=== PATIENT | male | born 1935 | race Caucasian/White ===

== ENCOUNTER 2016-09-23 16:32 | Emergency (ER) | payer MEDICARE, OTHER ==
[2016-09-23] MEDS ORDERED: BACIGUENT PACKET TP ONE (16:47)
[2016-09-23] MEDS ORDERED: Adacel Vial IM ONE ×2 (16:47→16:54)
[2016-09-23] MEDS ORDERED: BACIGUENT PACKET ONE (16:51)
--- NOTE | 2016-09-23 16:52 | ERPHSYRPT ---
- History of Present Illness Time Seen by Provider: 09/23/16 16:41 Source: patient Patient Subjective Stated Complaint: PT STATES THAT HE HAD A MOLE TRAP PIECE HIT HIM ON THE. HAND STATES HE JUST NEEDS A TETNUS SHOT. STATES HE. CLEANED THE WOUND WITH PEROXIDE AND APPLIED. TRIPLE ANTIBIOTIC OINTEMENT. Triage Nursing Assessment: PT ALERT WARM AND DRY RESP EASY NON LABORED PT HAS. PUNCTURE WOUND NOTED TO LEFT HAND BETWEEN THUMB AND. INDEX FINGER BLEEDING CONTROLLED. Physician History: CC: left hand injury Hx: 81 y/o patient of Dr Jeong injured left hand this AM with a mole trap. It poked him with a puncture at left prox thumb. He was worried about tetanus vaccine which has not been updated for over 5 years so came to ER. No other complaints. No N/T/W. Symptoms mild. Occurred: this morning Severity of Pain-Max: mild Severity of Pain-Current: mild Extremities Pain Location: hand: left Allergies/Adverse Reactions: No Known Drug Allergies Allergy (Verified 12/30/14 16:28) Home Medications: Aspirin 1 tab PO DAILY 04/16/15 [History] Losartan/Hydrochlorothiazide [Losartan-Hctz 50-12.5 mg Tab] 1 tab PO HS [History] Magnesium Oxide 400 mg [Mag-Ox 400] 400 mg PO BID 04/16/15 [History] Potassium Chloride 10 Meq Tab* [Klor Con 10 MEQ] 2 tab PO BID 04/16/15 [ History] Pravastatin Sodium 20 mg PO HS 04/16/15 [History] Tamsulosin HCl [Flomax] 1 tab PO HS 04/16/15 [History] Ticagrelor [Brilinta] 90 mg PO BID 04/16/15 [History] Hx Tetanus, Diphtheria Vaccination/Date Given: No (UNKNOWN) Hx Influenza Vaccination/Date Given: Yes Hx Pneumococcal Vaccination/Date Given: No Immunizations Up to Date: Yes - Review of Systems Constitutional: No Symptoms, No Fever Musculoskeletal: Injury (left hand), No Neck Pain Neurological: No Focal Weakness, No Parasthesia - Past Medical History Pertinent Past Medical History: No Neurological History: No Pertinent History ENT History: No Pertinent History Cardiac History: Myocardial Infarction (VT), Other Respiratory History: No Pertinent History, Pneumonia Endocrine Medical History: No Pertinent History Musculoskeletal History: No Pertinent History GI Medical History: No Pertinent History, Hernia History: No Pertinent History Psycho-Social History: No Pertinent History Male Reproductive Disorders: No Pertinent History Other Medical History: PROSTATE CANCER - seed implant. 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 - Past Surgical History Past Surgical History: Yes Neuro Surgical History: No Pertinent History Cardiac: Cardiac Catheterization, Cardiac Stent Respiratory: No Pertinent History Gastrointestinal: Hernia Repair Genitourinary: No Pertinent History Musculoskeletal: No Pertinent History Male Surgical History: Prostate Surgery Other Surgical History: PROSTATE SEED IMPLANT - Social History Smoking Status: Never smoker Exposure to second hand smoke: No Drug Use: none Patient Lives Alone: No - Nursing Vital Signs Nursing Vital Signs: Initial Vital Signs Temperature 98.0 F Temperature Source Oral Pulse Rate 59 Respiratory Rate 18 Blood Pressure [Left Arm] 162/80 - Physical Exam General Appearance: alert, other (pleasant man) Eyes, Ears, Nose, Throat Exam: moist mucous membranes Cardiovascular/Respiratory Exam: regular rate/rhythm Neuro/Tendon Exam: normal sensation, normal motor functions Mental Status Exam: alert, oriented x 3, cooperative Skin Exam: warm, dry SpO2: 96 Oxygen Delivery: Room Air Comments: He has some white salve on wound. Will cleanse. He has puncture between prox left thumb and index. No tenderness. Normal ROM. No apparent bony injury. Intact sensation. - Course Nursing assessment & vital signs reviewed: Yes Ordered Tests: Active Orders 24 hr Category Date Time Status Wound Care STAT Care 09/23/16 16:47 Active - Progress Progress Note: 09/23/16 16:50 He declines xray. Advised wound care. Adacel will be updated. Counseled pt/family regarding: diagnosis, need for follow-up - Departure Time of Disposition: 16:50 Departure Disposition: Home Clinical Impression: Puncture wound of left hand Qualifiers: Encounter type: initial encounter Foreign body presence: unspecified Qualified Code(s): S61.432A - Puncture wound without foreign body of left hand, initial encounter Condition: Stable Critical Care Time: No Referrals: CURLY JEONG MD [Primary Care Provider] - Instructions: Puncture Wound Additional Instructions: LACERATION CARE 1. Do not use peroxide, merthiolate, alcohol, or betadine. 2. Keep wound clean and dry. 3. Change dressing if it becomes wet or soiled. 4. If you must work, wear protective covering. 5. You may return to the emergency department or see your family physician for suture removal. 6. See your family physician or return to the emergency department for any of the following signs or symptoms: A. Redness B. Swelling C. Discolored drainage D. Red streaks E. Elevated temperature F. Other signs of infection Rx bacitracin. Report any sign of infection right away. Prescriptions: Bacitracin 15 gm TP DAILY #1 oint...g.
[2016-09-23 17:05] VITALS: BP 146/76; PULSE 64; O2SAT 97
== END 2016-09-23 17:06 | disposition home or self-care (01) ==
LOC: ED 16:32
DX: S61.432A Puncture wound without foreign body of left hand, initial encounter (principal); W22.8XXA Striking against or struck by other objects, initial encounter
CPT/HCPCS: 90471; 90715; 99283; 99284; A9270-GY

== ENCOUNTER 2018-04-28 11:54 | Emergency (ER) | payer MEDICARE, OTHER ==
[2018-04-28] MEDS ORDERED: Sodium Chloride 0.9% 1000 ML 1,000 ML IV STA (12:43)
--- NOTE | 2018-04-28 12:43 | ERPHSYRPT ---
- History of Present Illness Time Seen by Provider: 04/28/18 12:39 Source: patient, family Exam Limitations: no limitations Patient Subjective Stated Complaint: PT STATES HE WAS SITTING IN [employer] AND STARTED TO NOT FEEL WELL, WENT TO BATHROOM, FELT DIZZY AND FELL INTO WALL. STATES SOMEONE HELPED KEEP HIM UPRIGHT AND DID NOT FALL TO FLOOR. DENIES DIZZINESS AT THIS TIME. Triage Nursing Assessment: PALE/WARM/DRY, RESP EASY, A&OX4, PT WHEELED TO ROOM BUT STOOD AND TRANSFERRED TO BED PER SELF WITHOUT DIFFICULTY. EKG DONE. 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 He was listening to the choir singing when he became nauseated. As he walked to the bathroom, he began to get lightheaded. When he was in the bathroom, a friend caught him before he fell. He scraped his forehead on the wall. He did not vomit. He did not lose consciousness. His last tetanus vaccination was 1 year ago. He denies chest pain or shortness of breath. He now is feeling back to his normal self. His son talked him into coming in to be checked out. His past medical history is significant for CAD, SD, cardiac stent placement, HTN, high cholesterol, and prostate cancer Timing/Duration: today Severity: moderate Modifying Factors: Improves With: nothing Associated Symptoms: nausea, syncope (near), No vomiting Allergies/Adverse Reactions: No Known Drug Allergies Allergy (Verified 04/28/18 12:22) Home Medications: Aspirin 1 tab PO DAILY 04/16/15 [History] Potassium Chloride 10 Meq Tab* [Klor Con 10 MEQ] 1 tab PO BID 04/16/15 [ History] Duloxetine HCl 30 mg [Cymbalta 30 MG Capsule] 30 mg PO DAILY 04/28/18 [ History] Ergocalciferol (Vitamin D2) [Vitamin D] 1 cap PO WEEKLY 04/28/18 [History] Esomeprazole Magnesium [Nexium] 40 mg PO DAILY 04/28/18 [History] Ezetimibe 10 mg [Zetia 10 MG] 10 mg PO DAILY 04/28/18 [History] Furosemide [Lasix] 40 mg PO DAILY 04/28/18 [History] Guaifenesin/Pseudoephedrne HCl [Mucinex D ER 600-60 mg Tablet] 1 tab PO BID PRN 04/28/18 [History] Losartan Potassium 100 mg PO DAILY 04/28/18 [History] Magnesium Oxide 250 mg PO BID 04/28/18 [History] [place]-3 Fatty Acids/Fish Oil [Fish Oil 1,000 mg Capsule] 1 mg PO DAILY 04/28/18 [History] Pitavastatin Calcium [Livalo] 2 mg PO DAILY 04/28/18 [History] Ropinirole HCl 0.5 mg PO BID 04/28/18 [History] Ubidecarenone [Co Q-10] 200 mg PO DAILY 04/28/18 [History] Vit A/Vit C/Vit E/Zinc/Copper [Preservision Areds Softgel] 1 cap PO DAILY [History] Hx Tetanus, Diphtheria Vaccination/Date Given: Yes Hx Influenza Vaccination/Date Given: Yes Hx Pneumococcal Vaccination/Date Given: Yes Immunizations Up to Date: Yes - Review of Systems Constitutional: No Fever, No Chills Eyes: No Symptoms Ears, Nose, & Throat: No Symptoms Respiratory: No Cough, No Dyspnea Cardiac: No Chest Pain, No Edema, No Syncope Abdominal/Gastrointestinal: Nausea, No Vomiting, No Diarrhea Genitourinary Symptoms: No Dysuria Musculoskeletal: No Back Pain, No Neck Pain Skin: No Rash Neurological: Dizziness Psychological: No Symptoms Endocrine: No Symptoms Hematologic/Lymphatic: No Symptoms Immunological/Allergic: No Symptoms All Other Systems: Reviewed and Negative - Past Medical History Pertinent Past Medical History: No Neurological History: No Pertinent History ENT History: No Pertinent History Cardiac History: Myocardial Infarction (SD), Other Respiratory History: Pneumonia Endocrine Medical History: No Pertinent History Musculoskeletal History: No Pertinent History GI Medical History: Hernia History: No Pertinent History Psycho-Social History: No Pertinent History Male Reproductive Disorders: No Pertinent History Other Medical History: PROSTATE CANCER - seed implant. 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 - Past Surgical History Past Surgical History: Yes Neuro Surgical History: No Pertinent History Cardiac: Cardiac Catheterization, Cardiac Stent Respiratory: No Pertinent History Gastrointestinal: Hernia Repair Genitourinary: No Pertinent History Musculoskeletal: No Pertinent History Male Surgical History: Prostate Surgery Other Surgical History: PROSTATE SEED IMPLANT - Social History Smoking Status: Former smoker Exposure to second hand smoke: No Drug Use: none Patient Lives Alone: No - Nursing Vital Signs Nursing Vital Signs: Initial Vital Signs Pulse Rate 50 L 04/28/18 12:51 Respiratory Rate 16 04/28/18 12:51 Blood Pressure 104/58 04/28/18 12:51 O2 Sat by Pulse Oximetry 98 04/28/18 12:51 Pain Scale Pain Intensity 0 - Physical Exam General Appearance: no apparent distress, alert Eye Exam: PERRL/EOMI, eyes nml inspection Ears, Nose, Throat Exam: normal ENT inspection, TMs normal, pharynx normal, moist mucous membranes Neck Exam: normal inspection, non-tender, supple, full range of motion Respiratory Exam: normal breath sounds, lungs clear, No respiratory distress Cardiovascular Exam: normal heart sounds, normal peripheral pulses, bradycardia Gastrointestinal/Abdomen Exam: soft, normal bowel sounds, No tenderness, No mass Rectal Exam: not done Back Exam: normal inspection, normal range of motion, No CVA tenderness, No vertebral tenderness Extremity Exam: normal inspection, normal range of motion, pelvis stable Neurologic Exam: alert, oriented x 3, cooperative, normal mood/affect, nml cerebellar function, nml station & gait, sensation nml, No motor deficits Skin Exam: abrasion (to forehead) Lymphatic Exam: No adenopathy SpO2 Interpretation: normal O2 Delivery: Room Air - Course EKG Interpreted by Me: RATE, Sinus Sony, NORMAL AXIS, NORMAL INTERVALS, NORMAL QRS, NORMAL ST-T, Other (comp to EKG from 04/17/15.) - Radiology Exams Chest X-ray Interpretation: Interpreted by me, Negative (stable non-acute chest with chronic changes, comp 1V chest 04/16/15.) Ordered Tests: Active Orders 24 hr Category Date Time Status Clean Catch Urine Specimen STAT Care 04/28/18 12:43 Active EKG-ER Only STAT Care 04/28/18 12:43 Active IV Insertion STAT Care 04/28/18 12:43 Active Orthostatic Vital Signs STAT Care 04/28/18 12:43 Active CHEST 2 VIEWS (PA AND LAT) Stat Exams 04/28/18 12:44 Taken CBC W DIFF Stat Lab 04/28/18 12:30 Completed CMP Stat Lab 04/28/18 12:30 Completed ETHYL ALCOHOL Stat Lab 04/28/18 12:30 Completed Lactic Acid Stat Lab 04/28/18 12:44 Completed TROPONIN Q3H Lab 04/28/18 12:30 Completed TROPONIN Q3H Lab 04/28/18 15:45 Ordered TROPONIN Q3H Lab 04/28/18 18:45 Ordered TROPONIN Q3H Lab 04/28/18 21:45 Ordered TROPONIN Q3H Lab 04/29/18 00:45 Ordered UA W/RFX UR CULTURE Stat Lab 04/28/18 12:47 Completed Medication Summary Discontinued Medications Generic Name Dose Route Start Last Admin Trade Name Kristina PRN Reason Stop Dose Admin Sodium Chloride 1,000 mls @ 999 mls/hr 04/28/18 12:43 04/28/18 13:52 Sodium Chloride 0.9% 1000 Ml IV 04/28/18 13:43 Infused .Q1H1M STA Infusion Sodium Chloride Confirm 04/28/18 12:47 Sodium Chloride 0.9% 1000 Ml Administered 04/28/18 12:48 Dose 1,000 mls @ ud .ROUTE .STK-MED ONE Lab/Rad Data: Laboratory Result Diagrams 04/28/18 12:30 04/28/18 12:30 Laboratory Results 04/28/18 04/28/18 04/28/18 Range/Units 12:47 12:44 12:30 WBC (4.0-10.5) K/mm3 RBC (4.1-5.6) M/mm3 Hgb (12.5-18.0) gm/dl Hct (42-50) % MCV (78-100) fl MCH (26-32) pg MCHC (32-36) g/dl RDW (11.5-14.0) % Plt Count (150-450) K/mm3 MPV (6-9.5) fl Gran % (36.0-66.0) % Eos # (Auto) (0-0.5) Absolute Lymphs (auto) (1.0-4.6) Absolute Monos (auto) (0.0-1.3) Lymphocytes % (24.0-44.0) % Monocytes % (0.0-12.0) % Eosinophils % (0.00-5.0) % Basophils % (0.0-0.4) % Absolute Granulocytes (1.4-6.9) Basophils # (0-0.4) Sodium (137-145) mmol/L Potassium (3.5-5.1) mmol/L Chloride (98-107) mmol/L Carbon Dioxide (22-30) mmol/L Anion Gap (5-15) MEQ/L BUN (9-20) mg/dL Creatinine (0.66-1.25) mg/dL Estimated GFR ML/MIN Glucose (74-106) mg/dL Lactic Acid 1.2 (0.4-2.0) Calcium (8.4-10.2) mg/dL Total Bilirubin (0.2-1.3) mg/dL AST (17-59) U/L ALT (0-50) U/L Alkaline Phosphatase (38-126) U/L Troponin I < 0.012 (0.000-0.034) ng/mL Serum Total Protein (6.3-8.2) g/dL Albumin (3.5-5.0) g/dL Urine Color YELLOW (YELLOW) Urine Appearance HAZY (CLEAR) Urine pH 7.0 (5-6) Ur Specific [place] 1.024 (1.005-1.025) Urine Protein 30 (Negative) Urine Ketones NEGATIVE (NEGATIVE) Urine Blood NEGATIVE (0-5) Ernie/ul Urine Nitrite NEGATIVE (NEGATIVE) Urine Bilirubin NEGATIVE (NEGATIVE) Urine Urobilinogen 2 (0-1) mg/dL Ur Leukocyte Esterase NEGATIVE (NEGATIVE) Urine WBC (Auto) 3-5 (0-5) /HPF Urine RBC (Auto) 3-5 (0-2) /HPF U Epithel Cells (Auto) FEW (FEW) /HPF Urine Bacteria (Auto) RARE (NEGATIVE) /HPF Amorphous Crystals FEW (NEGATIVE) /HPF Other Casts (Auto) 0-2 (NEGATIVE) /LPF Urine Mucus (Auto) SLIGHT (NEGATIVE) /HPF Urine Culture Reflexed NO (NO) Urine Glucose NEGATIVE (NEGATIVE) mg/dL Ethyl Alcohol (0-10) mg/dL 04/28/18 04/28/18 Range/Units 12:30 12:30 WBC 7.4 (4.0-10.5) K/mm3 RBC 3.59 L (4.1-5.6) M/mm3 Hgb 10.9 L (12.5-18.0) gm/dl Hct 34.7 L (42-50) % MCV 96.7 (78-100) fl MCH 30.3 (26-32) pg MCHC 31.4 L (32-36) g/dl RDW 14.1 H (11.5-14.0) % Plt Count 190 (150-450) K/mm3 MPV 10.5 H (6-9.5) fl Gran % 61.9 (36.0-66.0) % Eos # (Auto) 0.24 (0-0.5) Absolute Lymphs (auto) 1.68 (1.0-4.6) Absolute Monos (auto) 0.88 (0.0-1.3) Lymphocytes % 22.6 L (24.0-44.0) % Monocytes % 11.8 (0.0-12.0) % Eosinophils % 3.2 (0.00-5.0) % Basophils % 0.5 (0.0-0.4) % Absolute Granulocytes 4.60 (1.4-6.9) Basophils # 0.04 (0-0.4) Sodium 140 (137-145) mmol/L Potassium 4.5 (3.5-5.1) mmol/L Chloride 104 (98-107) mmol/L Carbon Dioxide 29 (22-30) mmol/L Anion Gap 11.9 (5-15) MEQ/L BUN 28 H (9-20) mg/dL Creatinine 1.05 (0.66-1.25) mg/dL Estimated GFR > 60.0 ML/MIN Glucose 88 (74-106) mg/dL Lactic Acid (0.4-2.0) Calcium 9.2 (8.4-10.2) mg/dL Total Bilirubin 0.50 (0.2-1.3) mg/dL AST 21 (17-59) U/L ALT 15 (0-50) U/L Alkaline Phosphatase 65 (38-126) U/L Troponin I (0.000-0.034) ng/mL Serum Total Protein 7.5 (6.3-8.2) g/dL Albumin 3.9 (3.5-5.0) g/dL Urine Color (YELLOW) Urine Appearance (CLEAR) Urine pH (5-6) Ur Specific [place] (1.005-1.025) Urine Protein (Negative) Urine Ketones (NEGATIVE) Urine Blood (0-5) Ernie/ul Urine Nitrite (NEGATIVE) Urine Bilirubin (NEGATIVE) Urine Urobilinogen (0-1) mg/dL Ur Leukocyte Esterase (NEGATIVE) Urine WBC (Auto) (0-5) /HPF Urine RBC (Auto) (0-2) /HPF U Epithel Cells (Auto) (FEW) /HPF Urine Bacteria (Auto) (NEGATIVE) /HPF Amorphous Crystals (NEGATIVE) /HPF Other Casts (Auto) (NEGATIVE) /LPF Urine Mucus (Auto) (NEGATIVE) /HPF Urine Culture Reflexed (NO) Urine Glucose (NEGATIVE) mg/dL Ethyl Alcohol < 10 (0-10) mg/dL - Progress Progress: improved Progress Note: 04/28/18 14:07 Pt given NS bolus by IV. Counseled pt/family regarding: lab results, diagnosis, need for follow-up, rad results - Departure Time of Disposition: 14:07 Departure Disposition: Home Clinical Impression: Near syncope Condition: Stable Critical Care Time: No Referrals: CURLY JEONG MD [Primary Care Provider] - Additional Instructions: You had a brief near fainting episode while at [employer] today. You were given fluids by IV in the ER. Your chest x-ray and your lab results were all normal. Please follow-up with your primary medical doctor in one to 2 days.
[2018-04-28] MEDS ORDERED: Sodium Chloride 0.9% 1000 ML 1,000 ML ONE (12:47)
[2018-04-28 12:56] LABS: BASOPHIL % 0.5 % (0.0-0.4); Basophil (Absolute #) 0.04 (0-0.4); Eosinophil % 3.2 % (0.00-5.0); Eosinophil (Absolute #) 0.24 (0-0.5); Granulocytes % 61.9 % (36.0-66.0); Hematocrit 34.7 % (42-50); Hemoglobin 10.9 gm/dl (12.5-18.0); Lymphocyte (Absolute #) 1.68 (1.0-4.6); Lymphocytes % 22.6 % (24.0-44.0); Mean Cell Volume 96.7 fl (78-100); Mean Corpuscular Hemoglobin 30.3 pg (26-32); Mean Corpuscular Hgb Concent. 31.4 g/dl (32-36); Mean Platelet Volume 10.5 fl (6-9.5); Monocyte (Absolute #) 0.88 (0.0-1.3); Monocytes % 11.8 % (0.0-12.0); Platelet Count 190 K/mm3 (150-450); Red Blood Count 3.59 M/mm3 (4.1-5.6); Red Cell Distribution Width 14.1 % (11.5-14.0); White Blood Count 7.4 K/mm3 (4.0-10.5)
[2018-04-28 13:01] LABS: ALBUMIN 3.9 g/dL (3.5-5.0); ALKALINE PHOSPHATASE 65 U/L (38-126); ANION GAP 11.9 MEQ/L (5-15); BLOOD UREA NITROGEN 28 mg/dL (9-20); CHLORIDE 104 mmol/L (98-107); Calcium 9.2 mg/dL (8.4-10.2); Carbon Dioxide 29 mmol/L (22-30); Creatinine 1 1.05 mg/dL (0.66-1.25); Glucose 88 mg/dL (74-106); Potassium 4.5 mmol/L (3.5-5.1); SGOT/AST 21 U/L (17-59); SGPT/ALT 15 U/L (0-50); SODIUM 140 mmol/L (137-145); Total Protein 7.5 g/dL (6.3-8.2)
[2018-04-28 13:04] LABS: ETHYL ALCOHOL < 10 mg/dL (0-10)
[2018-04-28 13:10] LABS: Bacteria RARE /HPF (NEGATIVE); Bilirubin NEGATIVE (NEGATIVE); Blood NEGATIVE Ery/ul (0-5); Glucose NEGATIVE (NEGATIVE); Ketones NEGATIVE (NEGATIVE); Leukocyte Esterase NEGATIVE (NEGATIVE); Mucus SLIGHT /HPF (NEGATIVE); Nitrite NEGATIVE (NEGATIVE); Protein,Urine Dip 30 (Negative); Specific Gravity 1.024 (1.005-1.025); Urobilinogen 2 mg/dL (0-1)
[2018-04-28 13:11] LABS: Appearance HAZY (CLEAR)
[2018-04-28 13:12] LABS: Amourphous Crystal FEW /HPF (NEGATIVE); Epithelial Cells FEW /HPF (FEW)
[2018-04-28 13:51] VITALS: BP 139/78; O2SAT 96
[2018-04-28 13:54] VITALS: PULSE 50
--- NOTE | 2018-04-28 19:06 | XRAY ---
Indication: Near syncope. Comparison: April 16, 2015. PA/lateral chest again hyperinflated without focal infiltrate, consolidation, or large effusion. Heart and mediastinal structures within normal limits again with a few mediastinal/hilar calcified nodes. Bony thorax intact again with mild osteopenia and degenerative changes. Impression: Stable nonacute hyperinflated chest with chronic features.
== END 2018-04-28 14:17 | disposition home or self-care (01) ==
LOC: ED 11:54
DX: R55 Syncope and collapse (principal); I25.2 Old myocardial infarction; Z79.899 Other long term (current) drug therapy; Z85.46 Personal history of malignant neoplasm of prostate
CPT/HCPCS: 36000; 36415; 71046; 80053; 81001; 83605; 84484; 85025; 93005; 96360; 99284; G0480; 80307; 96374

== ENCOUNTER 2018-05-26 12:14 | Emergency (ER) | payer MEDICARE, OTHER | END 2018-05-26 14:50 | disposition home or self-care (01) | LOC: ED 12:14 ==

== ENCOUNTER 2019-08-12 16:57 | Emergency (ER) | payer MEDICARE, OTHER ==
[2019-08-12] MEDS ORDERED: BENADRYL 25 MG CAPSULE PO ONE (17:31)
[2019-08-12] MEDS ORDERED: BENADRYL 25 MG CAPSULE ONE (17:36)
--- NOTE | 2019-08-12 17:44 | ERPHSYRPT ---
- History of Present Illness Time Seen by Provider: 08/12/19 17:10 Historian: patient Exam Limitations: no limitations Patient Subjective Stated Complaint: pt here for a insect sting to right hand an hour ago Triage Nursing Assessment: he walked in, alert, resp easy, skin w/d/p. has swelling and reddness to right hand , no sob Physician History: Patient is a 84-year-old male presents to our ED with complaints of a wasp sting to his right middle finger. Incident occurred approximately 1 hour prior to arrival. Patient initially felt a very strong burning sensation that shot up his arm from the bee sting. Patient observed his finger and adjacent knuckle become swollen and red. Patient became very concerned and came to our ED for evaluation. However in the interim patient symptoms have significantly improved. The stinging sensation is almost completely resolved. The redness is mild to moderate in intensity. No associated trauma. No fever. No chest pain or shortness of breath. No nausea vomiting or diaphoresis. No wheezing. No abdominal cramping. No throat tightness. No intraoral lesions. Patient tolerating secretions well. Patient declined IV. Patient only requesting Benadryl. Patient states he has a appointment with his binder cutter hand tomorrow and states he will have him reexamine the involved area. Patient at bedside. They voiced no other complaints or concerns at this time. Timing/Duration: today Activities at Onset: none Quality: burning, sharpness Abdominal Pain Onset Location: other (Right middle digit.) Pain Radiation: other (Pain radiating up arm.) Severity of Pain-Max: moderate Severity of Pain-Current: mild Modifying Factors: Improves With: nothing Associated Symptoms: No back, No chest pain, No diaphoresis, No fever/chills, No headache, No shortness of breath Previous symptoms: no prior history Allergies/Adverse Reactions: No Known Drug Allergies Allergy (Verified 08/12/19 17:08) Home Medications: Aspirin 1 tab PO DAILY 04/16/15 [History] Potassium Chloride 10 Meq Tab* [Klor Con 10 MEQ] 1 tab PO BID 04/16/15 [ History] Duloxetine HCl 30 mg [Cymbalta 30 MG Capsule] 30 mg PO DAILY 04/28/18 [ History] Ergocalciferol (Vitamin D2) [Vitamin D] 1 cap PO WEEKLY 04/28/18 [History] Esomeprazole Magnesium [Nexium] 40 mg PO DAILY 04/28/18 [History] Ezetimibe 10 mg [Zetia 10 MG] 10 mg PO DAILY 04/28/18 [History] Furosemide [Lasix] 40 mg PO DAILY 04/28/18 [History] Guaifenesin/Pseudoephedrne HCl [Mucinex D ER 600-60 mg Tablet] 1 tab PO BID PRN 04/28/18 [History] Losartan Potassium 100 mg PO DAILY 04/28/18 [History] Magnesium Oxide 250 mg PO BID 04/28/18 [History] [place]-3 Fatty Acids/Fish Oil [Fish Oil 1,000 mg Capsule] 1 mg PO DAILY 04/28/18 [History] Pitavastatin Calcium [Livalo] 2 mg PO DAILY 04/28/18 [History] Ropinirole HCl 0.5 mg PO BID 04/28/18 [History] Ubidecarenone [Co Q-10] 200 mg PO DAILY 04/28/18 [History] Vit A/Vit C/Vit E/Zinc/Copper [Preservision Areds Softgel] 1 cap PO DAILY [History] Hx Tetanus, Diphtheria Vaccination/Date Given: Yes Hx Influenza Vaccination/Date Given: Yes Hx Pneumococcal Vaccination/Date Given: Yes Immunizations Up to Date: Yes Travel Risk - International Travel Have you traveled outside of the country in past 3 weeks: No Have you or anyone close to you been diagnosed with or: No Do your reside in a community with a known COVID-19 case?: Yes If Yes where:: [place] - Coronavirus Screening Has patient experienced Coronavirus symptoms: No - Review of Systems Constitutional: No Symptoms, No Fever, No Chills Eyes: No Symptoms Ears, Nose, & Throat: No Symptoms Respiratory: No Symptoms, No Cough, No Dyspnea Cardiac: No Symptoms, No Chest Pain, No Edema, No Syncope Abdominal/Gastrointestinal: No Symptoms, No Abdominal Pain, No Nausea, No Vomiting, No Diarrhea Genitourinary Symptoms: No Symptoms, No Dysuria Musculoskeletal: No Symptoms, No Back Pain, No Neck Pain Skin: No Symptoms, No Cellulitis, No Rash Neurological: No Symptoms, No Dizziness, No Focal Weakness, No Sensory Changes Psychological: No Symptoms Endocrine: No Symptoms Hematologic/Lymphatic: No Symptoms Immunological/Allergic: No Symptoms All Other Systems: Reviewed and Negative - Past Medical History Pertinent Past Medical History: No Neurological History: No Pertinent History ENT History: No Pertinent History Cardiac History: Coronary Artery Disease, Myocardial Infarction ([place]), Other Respiratory History: Pneumonia Endocrine Medical History: No Pertinent History Musculoskeletal History: No Pertinent History GI Medical History: Hernia History: No Pertinent History Psycho-Social History: No Pertinent History Male Reproductive Disorders: No Pertinent History Other Medical History: PROSTATE CANCER - seed implant. [place] IN DEC 2014-1 STENT PLACED-[employer] DR. ESPINOSA - Past Surgical History Past Surgical History: Yes Neuro Surgical History: No Pertinent History Cardiac: Cardiac Catheterization, Cardiac Stent Respiratory: No Pertinent History Gastrointestinal: Hernia Repair Genitourinary: No Pertinent History Musculoskeletal: No Pertinent History Male Surgical History: Prostate Surgery Other Surgical History: PROSTATE SEED IMPLANT - Social History Smoking Status: Former smoker Exposure to second hand smoke: No Drug Use: none Patient Lives Alone: No - Nursing Vital Signs Nursing Vital Signs: Initial Vital Signs O2 Sat by Pulse Oximetry 97 08/12/19 17:03 Pain Scale Pain Intensity 2 - Physical Exam General Appearance: no apparent distress, alert Eye Exam: PERRL/EOMI, eyes nml inspection Ears, Nose, Throat Exam: normal ENT inspection, pharynx normal, moist mucous membranes, No pharyngeal erythema Neck Exam: normal inspection, non-tender, supple, full range of motion Respiratory Exam: normal breath sounds, lungs clear, airway intact, No respiratory distress, No accessory muscle use, No crackles/rales, No rhonchi, No wheezing Cardiovascular Exam: regular rate/rhythm, normal heart sounds Gastrointestinal/Abdomen Exam: soft, No tenderness, No mass Back Exam: normal inspection, normal range of motion, No CVA tenderness, No vertebral tenderness Extremity Exam: normal inspection, normal range of motion, pelvis stable Neurologic Exam: alert, oriented x 3, cooperative, normal mood/affect, nml cerebellar function, sensation nml, No motor deficits Skin Exam: normal color, warm, dry SpO2 Interpretation: normal SpO2: 97 O2 Delivery: Room Air - Course Nursing assessment & vital signs reviewed: Yes Ordered Tests: Medication Summary Discontinued Medications Generic Name Dose Route Start Last Admin Trade Name Freq PRN Reason Stop Dose Admin Diphenhydramine HCl 25 mg 08/12/19 17:31 08/12/19 17:37 Benadryl 25 Mg Capsule PO 08/12/19 17:32 25 mg STAT ONE Administration Diphenhydramine HCl Confirm 08/12/19 17:36 Benadryl 25 Mg Capsule Administered 08/12/19 17:37 Dose 25 mg .ROUTE .STK-MED ONE - Progress Progress: improved Progress Note: 08/12/19 17:48 Patient declined work-up and ID. Patient agreed to Benadryl. Benadryl administered. Patient reassessed. Symptoms continue to improve. No indication for antibiotics at this time. Patient will follow-up with his binder cutter hand tomorrow and have the involved area reassessed. Patient also advised to follow-up with Dr. Jeong his primary care doctor for reevaluation. At this point we will discharge patient however he understands the importance of follow-up as there is always a small possibility that he can develop a cellulitis from the sting. Counseled pt/family regarding: diagnosis, need for follow-up - Departure Departure Disposition: Home Clinical Impression: Insect sting Condition: Stable Critical Care Time: No Referrals: CURLY JEONG MD [Primary Care Provider] - Additional Instructions: Discharge/Care Plan NATHANIEL FIGUEROA was seen on 08/12/19 in the Emergency Room. The patient was counseled regarding Diagnosis,Lab results, Imaging studies, need for follow up and when to return to the Emergency Room. Prescriptions given: Discharge Note I have spoken with the patient and/or caregivers. I have explained the patient' s condition, diagnosis and treatment plan based on the information available to me at this time. I have answered the patient's and/or caregiver's questions and addressed any concerns. The patient and/or caregivers have as good understanding of the patient's diagnosis, condition and treatment plan as can be expected at this point. The vital signs have been stable. The patient's condition is stable and appropriate for discharge from the emergency department. The patient will pursue further outpatient evaluation with the primary care physician or other designated or consulting physician as outlined in the discharge instructions. The patient and/or caregivers are agreeable to this plan of care and follow-up instructions have been explained in detail. The patient and/or caregivers have received these instruction. The patient/and or caregivers are aware that any significant change in condition or worsening of symptoms should prompt an immediate return to this or the closest emergency department or call 911.
[2019-08-12 18:10] VITALS: BP 148/77; PULSE 70; O2SAT 98
== END 2019-08-12 18:31 | disposition home or self-care (01) ==
LOC: ED 16:57
DX: R20.8 Other disturbances of skin sensation (principal); W57.XXXA Bitten or stung by nonvenomous insect and other nonvenomous arthropods, initial encounter; M79.89 Other specified soft tissue disorders; I25.10 Atherosclerotic heart disease of native coronary artery without angina pectoris; Z79.899 Other long term (current) drug therapy; I25.2 Old myocardial infarction; Z85.46 Personal history of malignant neoplasm of prostate
CPT/HCPCS: 99283; A9270-GY

== ENCOUNTER 2019-11-02 13:27 | Inpatient (IN) | payer MEDICARE, OTHER ==
--- NOTE | 2019-11-02 13:44 | ERPHSYRPT ---
- History of Present Illness Time Seen by Provider: 11/02/19 13:44 Source: patient Physician History: The patient is an 84-year-old male with a past medical history significant for a hiatal hernia in addition to prior food bolus impactions that have resolved with what sounds to be spontaneously presents with a chief complaint of a possible food bolus impaction. He states that he was eating some steak and did not chew a piece of steak on the way before he swallows it and now he feels as if it stuck. Onset reportedly was an hour prior to arrival to the emergency department. He endorsed having a globus sensation or full sensation and his mid sternum and is unable to swallow his secretions or any liquids without vomiting. Otherwise, he has no additional complaints at this time. He does not follow with a GI as an outpatient and to his knowledge or per his report he has not had an EGD with esophageal dilation. Allergies/Adverse Reactions: No Known Drug Allergies Allergy (Verified 11/02/19 13:44) Home Medications: Potassium Chloride 10 Meq Tab* [Klor Con 10 MEQ] 1 tab PO BID 04/16/15 [History] Duloxetine HCl 30 mg [Cymbalta 30 MG Capsule] 30 mg PO DAILY 04/28/18 [History] Ergocalciferol (Vitamin D2) [Vitamin D] 1 cap PO WEEKLY 04/28/18 [History] Esomeprazole Magnesium [Nexium] 40 mg PO DAILY 04/28/18 [History] Ezetimibe 10 mg [Zetia 10 MG] 10 mg PO DAILY 04/28/18 [History] Furosemide [Lasix] 40 mg PO DAILY 04/28/18 [History] Guaifenesin/Pseudoephedrne HCl [Mucinex D ER 600-60 mg Tablet] 1 tab PO BID PRN 04/28/18 [History] Losartan Potassium 100 mg PO HS 04/28/18 [History] [place]-3 Fatty Acids/Fish Oil [Fish Oil 1,000 mg Capsule] 1 mg PO DAILY 04/28/18 [History] Pitavastatin Calcium [Livalo] 2 mg PO HS 04/28/18 [History] Ropinirole HCl 0.5 mg PO HS 04/28/18 [History] Ubidecarenone [Co Q-10] 200 mg PO BID 04/28/18 [History] Vit A/Vit C/Vit E/Zinc/Copper [Preservision Areds Softgel] 2 cap PO DAILY [History] Hx Tetanus, Diphtheria Vaccination/Date Given: Yes Hx Influenza Vaccination/Date Given: Yes Hx Pneumococcal Vaccination/Date Given: Yes Travel Risk - International Travel Have you traveled outside of the country in past 3 weeks: No - Coronavirus Screening Are you exhibiting any of the following symptoms?: No Close contact with a COVID-19 positive Pt in past 14-21 Days: No - Review of Systems Constitutional: No Symptoms Eyes: No Symptoms Ears, Nose, & Throat: No Symptoms Respiratory: No Symptoms Cardiac: No Symptoms, Other (Full sensation/globus sensation in test.) Abdominal/Gastrointestinal: Nausea, Vomiting Musculoskeletal: No Symptoms Skin: No Symptoms Neurological: No Symptoms Psychological: No Symptoms Endocrine: No Symptoms Hematologic/Lymphatic: No Symptoms Immunological/Allergic: No Symptoms All Other Systems: Reviewed and Negative - Past Medical History Pertinent Past Medical History: No Neurological History: No Pertinent History ENT History: No Pertinent History Cardiac History: Coronary Artery Disease, Myocardial Infarction ([place]), Other Respiratory History: Pneumonia Endocrine Medical History: No Pertinent History Musculoskeletal History: No Pertinent History GI Medical History: Hernia History: No Pertinent History Psycho-Social History: No Pertinent History Male Reproductive Disorders: No Pertinent History Other Medical History: PROSTATE CANCER - seed implant. [place] IN DEC 2014-1 STENT PLACED-[employer]IST DR. ESPINOSA - Past Surgical History Past Surgical History: Yes Neuro Surgical History: No Pertinent History Cardiac: Cardiac Catheterization, Cardiac Stent Respiratory: No Pertinent History Gastrointestinal: Hernia Repair Genitourinary: No Pertinent History Musculoskeletal: No Pertinent History Male Surgical History: Prostate Surgery Other Surgical History: PROSTATE SEED IMPLANT - Social History Smoking Status: Former smoker Exposure to second hand smoke: No Drug Use: none Patient Lives Alone: No - Nursing Vital Signs Nursing Vital Signs: Initial Vital Signs Temperature 98.4 F 11/02/19 13:36 Pulse Rate 69 11/02/19 13:36 Respiratory Rate 18 11/02/19 13:36 O2 Sat by Pulse Oximetry 98 11/02/19 13:36 Pain Scale Pain Intensity 5 - Physical Exam General Appearance: no apparent distress, mild distress Eye Exam: PERRL/EOMI Ears, Nose, Throat Exam: normal ENT inspection Neck Exam: normal inspection Respiratory Exam: normal breath sounds, lungs clear, No chest tenderness, No respiratory distress Cardiovascular Exam: regular rate/rhythm, normal heart sounds, normal peripheral pulses Gastrointestinal/Abdomen Exam: soft, No distention, No mass, No guarding Rectal Exam: deferred Back Exam: normal inspection Extremity Exam: normal inspection Neurologic Exam: alert, oriented x 3, cooperative Skin Exam: normal color, warm, dry, No rash, No petechiae SpO2 Interpretation: normal O2 Delivery: Room Air Ordered Tests: Active Orders 24 hr Category Date Time Status ABDOMEN AND PELVIS W CONTRAST [CT] Routine Exams 11/02/19 16:22 Taken CHEST WITH CONTRAST [CT] Routine Exams 11/02/19 16:02 Taken BMP Stat Lab 11/02/19 13:45 Completed CBC W DIFF Stat Lab 11/02/19 13:45 Completed Medication Summary Discontinued Medications Generic Name Dose Route Start Last Admin Trade Name Freq PRN Reason Stop Dose Admin Etomidate Confirm 11/02/19 15:42 Amidate 20 Mg/10 Ml Administered 11/02/19 15:43 Dose 20 mg IV .STK-MED ONE Glucagon 1 mg 11/02/19 13:59 11/02/19 14:28 Glucagen 1 Mg IV 11/02/19 14:00 1 mg STAT ONE Administration Glucagon Confirm 11/02/19 14:26 Glucagen 1 Mg Administered 11/02/19 14:27 Dose 1 mg .ROUTE .STK-MED ONE Lactated Ringer's Confirm 11/02/19 14:52 Lactated Ringers Administered 11/02/19 14:53 Dose 1,000 mls @ ud IV .STK-MED ONE Lactated Ringer's 1,000 mls @ 75 mls/hr 11/02/19 18:00 11/02/19 17:45 Lactated Ringers IV 12/02/19 17:59 75 mls/hr .[id number] ELIZABETH Administration Piperacillin Sod/Tazobactam 100 mls @ 200 mls/hr 11/02/19 18:00 11/02/19 17:45 Sod 3.375 gm/ Sodium Chloride IV 12/02/19 17:59 200 mls/hr Q6HT ELIZABETH Administration Lidocaine HCl Confirm 11/02/19 15:06 Xylocaine-Mpf 2% 5 Ml Vial Administered 11/02/19 15:07 Dose 5 ml .ROUTE .STK-MED ONE Morphine Sulfate 2 mg 11/02/19 17:30 11/02/19 18:23 Morphine Sulfate 2 Mg Inj IV 11/07/19 17:29 2 mg Q4H PRN PRN Administration PAIN Ondansetron HCl 4 mg 11/02/19 17:33 Zofran 4 Mg/2 Ml Vial IV 12/02/19 17:32 Q6H PRN PRN NAUSEA Pantoprazole Sodium 40 mg 11/02/19 22:00 Protonix 40 Mg Iv IV 12/02/19 21:59 BID ELIZABETH Propofol Confirm 11/02/19 15:06 Diprivan 200 Mg/20 Ml Administered 11/02/19 15:07 Dose 200 mg IV .STK-MED ONE Lab/Rad Data: Laboratory Result Diagrams 11/02/19 13:45 11/02/19 13:45 Laboratory Results 11/02/19 11/02/19 Range/Units 13:45 13:45 WBC 8.0 (4.0-10.5) K/mm3 RBC 3.77 L (4.1-5.6) M/mm3 Hgb 11.7 L (12.5-18.0) gm/dl Hct 36.9 L (42-50) % MCV 97.9 (78-100) fl MCH 31.0 (26-32) pg MCHC 31.7 L (32-36) g/dl RDW 14.3 H (11.5-14.0) % Plt Count 231 (150-450) K/mm3 MPV 11.4 H (7.5-11.0) fl Gran % 67.4 H (36.0-66.0) % Eos # (Auto) 0.12 (0-0.5) Absolute Lymphs (auto) 2.23 (1.0-4.6) Absolute Monos (auto) 0.21 (0.0-1.3) Lymphocytes % 28.1 (24.0-44.0) % Monocytes % 2.6 (0.0-12.0) % Eosinophils % 1.5 (0.00-5.0) % Basophils % 0.4 (0.0-0.4) % Absolute Granulocytes 5.36 (1.4-6.9) Basophils # 0.03 (0-0.4) Sodium 135 L (137-145) mmol/L Potassium 4.0 (3.5-5.1) mmol/L Chloride 105 (98-107) mmol/L Carbon Dioxide 21 L (22-30) mmol/L Anion Gap 13.9 (5-15) MEQ/L BUN 24 H (9-20) mg/dL Creatinine 0.80 (0.66-1.25) mg/dL Estimated GFR > 60.0 ML/MIN Glucose 145 H (74-106) mg/dL Calcium 9.3 (8.4-10.2) mg/dL - Progress Progress: unchanged Progress Note: 11/02/19 13:[address] Louise, general surgery, and discussed the case with him. He agreed to see the patient for EGD to treat food bolus impaction. Ok to try gl ucagon. 11/02/19 20:59 Toxic appearance. The patient was taken to the OR to undergo possible EGD for a presumed full bolus impaction in the context of a hiatal hernia. It is also possible that the patient hiatal hernia could be causing the primary symptoms. Discussed with Dr.: Other (Altaf Louise) Counseled pt/family regarding: diagnosis - Departure Departure Disposition: Release to OR/SDC Clinical Impression: Bolus impaction of digestive tract Condition: Stable Critical Care Time: No
[2019-11-02] MEDS ORDERED: GlucaGen 1 MG IV ONE (13:59)
[2019-11-02] MEDS ORDERED: GlucaGen 1 MG ONE (14:26)
[2019-11-02] MEDS ORDERED: Lactated Ringers 1,000 ML IV ONE (14:52)
[2019-11-02] MEDS ORDERED: DIPRIVAN 200 MG/20 ML IV ONE (15:06)
[2019-11-02] MEDS ORDERED: Xylocaine-Mpf 2% 5 Ml Vial ONE (15:06)
[2019-11-02] MEDS ORDERED: Amidate 20 MG/10 ML IV ONE (15:42)
[2019-11-02 16:08] LABS: Absolute Neutrophil Ct (ANC) 5.36 (1.4-6.9); BASOPHIL % 0.4 % (0.0-0.4); Basophil (Absolute #) 0.03 (0-0.4); Eosinophil % 1.5 % (0.00-5.0); Eosinophil (Absolute #) 0.12 (0-0.5); Hematocrit 36.9 % (42-50); Hemoglobin 11.7 gm/dl (12.5-18.0); Lymphocyte (Absolute #) 2.23 (1.0-4.6); Lymphocytes % 28.1 % (24.0-44.0); Mean Cell Volume 97.9 fl (78-100); Mean Corpuscular Hgb Concent. 31.7 g/dl (32-36); Mean Platelet Volume 11.4 fl (7.5-11.0); Monocyte (Absolute #) 0.21 (0.0-1.3); Monocytes % 2.6 % (0.0-12.0); Neutrophil % 67.4 % (36.0-66.0); Platelet Count 231 K/mm3 (150-450); Red Blood Count 3.77 M/mm3 (4.1-5.6); Red Cell Distribution Width 14.3 % (11.5-14.0)
[2019-11-02 16:12] LABS: ANION GAP 13.9 MEQ/L (5-15); BLOOD UREA NITROGEN 24 mg/dL (9-20); CHLORIDE 105 mmol/L (98-107); Calcium 9.3 mg/dL (8.4-10.2); Carbon Dioxide 21 mmol/L (22-30); Glucose 145 mg/dL (74-106); SODIUM 135 mmol/L (137-145)
[2019-11-02 17:27] VITALS: BP 116/51; PULSE 87
[2019-11-02] MEDS ORDERED: MORPHINE SULFATE 2 MG INJ IV PRN (17:30)
[2019-11-02] MEDS ORDERED: Zofran 4 MG/2 ML VIAL IV PRN (17:33)
[2019-11-02 17:55] VITALS: O2SAT 94
[2019-11-02] MEDS ORDERED: Zosyn 3.375 GM Vial 3.375 GM in Sodium Chloride 100ML MINI-BAG PLUS 100 ML IV SCH (18:00)
[2019-11-02] MEDS ORDERED: SODIUM CHLORIDE 0.9% IV SCH (18:00)
[2019-11-02] MEDS ORDERED: ZOSYN IV SCH (18:00)
[2019-11-02] MEDS ORDERED: Lactated Ringers 1,000 ML IV SCH (18:00)
[2019-11-02 18:04] LABS: Hematocrit 36.9 % (42-50); Hemoglobin 11.9 gm/dl (12.5-18.0); Mean Cell Volume 97.1 fl (78-100); Mean Corpuscular Hemoglobin 31.3 pg (26-32); Mean Corpuscular Hgb Concent. 32.2 g/dl (32-36); Mean Platelet Volume 10.1 fl (7.5-11.0); Platelet Count 191 K/mm3 (150-450); Red Cell Distribution Width 14.3 % (11.5-14.0); White Blood Count 12.4 K/mm3 (4.0-10.5)
[2019-11-02 18:16] LABS: ANION GAP 10.3 MEQ/L (5-15); BLOOD UREA NITROGEN 24 mg/dL (9-20); CHLORIDE 103 mmol/L (98-107); Calcium 8.9 mg/dL (8.4-10.2); Carbon Dioxide 26 mmol/L (22-30); Creatinine 1 0.82 mg/dL (0.66-1.25); Glucose 105 mg/dL (74-106); Potassium 3.7 mmol/L (3.5-5.1); SODIUM 135 mmol/L (137-145)
[2019-11-02] MEDS ORDERED: PROTONIX 40 MG IV IV SCH (22:00)
--- NOTE | 2019-11-03 08:53 | XRAY ---
Indication: Perforated esophagus. Multiple contiguous axial images obtained through the chest using 80 cc Isovue 370 contrast. Comparison: None There is moderate size hiatal hernia with tiny paraesophageal free air consistent with known perforation. No focal fluid collection. Heart is not enlarged. Aorta is normal in course and caliber with minimal arteriosclerotic calcifications. Small paratracheal and right perihilar calcified nodes. No pathologic mediastinal/hilar lymphadenopathy. Lungs demonstrates minimal bilateral dependent atelectasis, right upper lobe fibrosis/scarring, and a few bilateral calcified granulomas. 4 mm right middle lobe noncalcified nodule adjacent to the minor fissure probably granulomatous. No infiltrate, consolidation, effusion, or pneumothorax. Bony thorax demonstrates osteopenia and flowing osteophytes throughout the spine. CT abdomen/pelvis reported separately. Impression: 1. Perforated hiatal hernia without focal fluid collection. 2. Chronic bony findings and old granulomatous disease. Comment: Preliminary interpretation was made by [facility]. No critical discrepancy.
--- NOTE | 2019-11-03 08:57 | XRAY ---
Indication: Perforated esophagus. Multiple contiguous axial images obtained through the abdomen and pelvis using 80 cc Isovue 370 contrast only. Comparison: May 31, 2012. CT chest reported separately. Noncontrasted stomach and bowel loops appear nonobstructed. Normal appendix. Again prostate radiation seeds. No free fluid/air. Remaining liver, gallbladder, pancreas, spleen, adrenal glands, kidneys, ureters, and bladder appear unremarkable. There remains moderate aortoiliac calcifications. No AAA or pathologic retroperitoneal lymphadenopathy. Osseous structures again demonstrates osteopenia with progressive worsening moderate multilevel degenerative spondylosis. New L5 Schmorl node. Stable small fatty right inguinal hernia. Impression: 1. Stable prostate radiation seeds and fatty right inguinal hernia. 2. Chronic bony findings with worsening multilevel degenerative spondylosis and new L5 Schmorl node. 3. Remaining CT abdomen/pelvis with contrast exam is negative. Comment: Preliminary interpretation was made by [facility]. No critical discrepancy.
--- NOTE | 2019-11-03 13:17 | OP ---
SURGERY DATE/TIME: 11/02/2019 1510 PREOPERATIVE DIAGNOSIS: Food bolus. POSTOPERATIVE DIAGNOSES: 1) Food bolus. 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 PROCEDURE: EGD with food bolus disimpaction. SURGEON: Altaf Louise M.D. ANESTHESIA: MAC. ESTIMATED BLOOD LOSS: None. COMPLICATIONS: None. SPECIMENS: None. FINDINGS: Food bolus of gastroesophageal junction with stricture at the gastroesophageal junction. There is a defect in the esophageal wall in the distal esophagus which appears to be posterior approximately 3 cm with food debris in this outpouching. It appears to be contain chronic perforation, esophageal diverticulum, or acute contained esophageal perforation from poorhouse. PATIENT PRESENTATION: This patient presents with acute onset of food impaction from eating meat and lettuce substances today. He has had difficulty swallowing for many years but does not think that he has ever needed any procedures for it because they always passed on their own. After discussing risks, benefits of EGD with food bolus disimpaction the patient wished to proceed. DESCRIPTION OF PROCEDURE: The patient was brought to the endoscopy suite and placed in left lateral decubitus position. Placed under MAC anesthesia. Mouth was suctioned out. Gastroscope inserted through the mouth. The esophagus was suctioned out of some fluid in the esophagus. The scope was advanced to the distal esophagus. There appeared to be what looked like two lumens at the gastroesophageal junction. There was this outpouching posteriorly that looked somewhat like esophageal diverticulum with a defect in the longitudinal fibers. It did appear more likely a chronic or acute contained perforation. The scope was then easily advanced over the food bolus into the stomach. The stomach appeared normal. The scope was withdrawn back into the esophagus and the food was gently advanced to the stomach without any difficulty whatsoever. There is a stricture of the gastroesophageal junction but the scope passed easily through this. Further examination of the tear in the esophagus this looks to be posterior slightly on the right approximately 3 cm and there is some food debris in the base of it. There is no obvious communication with the chest and it does appear to be contained and it is really unclear if this is a chronic contained perforation or a strange appearing esophageal diverticulum. The scope was withdrawn and further suctioned out of the esophagus. The patient was recovered and taken to CT scan for further imaging of this esophageal tear. PLAN: Plan to admit patient for close observation and repeat imaging tomorrow with upper GI with Gastrografin and barium. The problem was discussed in depth with the patient and his daughter who is his Power Of Reject Opener. Options including transfer to tertiary care center for potential evaluation for esophageal stenting were discussed as well as admission and observation here. The CT scan was reviewed and there may be a few tiny bubbles of air outside of the lumen as would be expected, based on his scope there does not appear to be any free perforation into the chest or free perforation into the mediastinum. It does appear to be either a chronic or acute contained perforation. With this in mind, the family would like to keep the patient here for observation and we will plan for an esophagogram tomorrow for further evaluation of esophageal pathology.
== END 2019-11-02 19:30 | disposition home or self-care (01) | DRG 393 ==
LOC: ED 13:27 → MED SURG 17:05 → UNDOADMIN 17:17
PROVIDERS: ADMIT Surgery; ATTEND Surgery
DX: T18.128A Food in esophagus causing other injury, initial encounter (principal); K22.3 Perforation of esophagus; I10 Essential (primary) hypertension; Z79.899 Other long term (current) drug therapy; Z86.79 Personal history of other diseases of the circulatory system; Z85.46 Personal history of malignant neoplasm of prostate
CPT/HCPCS: 36415; 71260; 74177; 80048; 85025; 85027; 96374; 99100; 99140; 99284; J1610; J2270; J2704

== ENCOUNTER 2020-06-14 19:40 | Emergency (ER) | payer MEDICARE, OTHER ==
--- NOTE | 2020-06-14 19:54 | ERPHSYRPT ---
- History of Present Illness Time Seen by Provider: 06/14/20 19:54 Historian: patient Exam Limitations: no limitations Physician History: This is an 85-year-old white male with a history of hypertension and gastroesophageal reflux disease as well as a hiatal hernia, and presents with a food bolus of steak stuck in his esophagus. He had a similar episode on 11/02/2019 which required an EGD. Patient denies chest pain he denies shortness of breath. He has no abdominal pain. Timing/Duration: today Activities at Onset: none Quality: pressure Pain Radiation: no radiation Severity of Pain-Max: none Severity of Pain-Current: none Associated Symptoms: denies symptoms, vomiting (Dry heaving, retching) Previous symptoms: same symptoms as today, no recent treatment Allergies/Adverse Reactions: No Known Drug Allergies Allergy (Verified 06/14/20 19:45) Home Medications: Potassium Chloride 10 Meq Tab* [Klor Con 10 MEQ] 1 tab PO BID 04/16/15 [History] Duloxetine HCl 30 mg [Cymbalta 30 MG Capsule] 30 mg PO DAILY 04/28/18 [History] Ergocalciferol (Vitamin D2) [Vitamin D] 1 cap PO WEEKLY 04/28/18 [History] Esomeprazole Magnesium [Nexium] 40 mg PO DAILY 04/28/18 [History] Ezetimibe 10 mg [Zetia 10 MG] 10 mg PO DAILY 04/28/18 [History] Furosemide [Lasix] 40 mg PO DAILY 04/28/18 [History] Guaifenesin/Pseudoephedrne HCl [Mucinex D ER 600-60 mg Tablet] 1 tab PO BID PRN 04/28/18 [History] Losartan Potassium 100 mg PO HS 04/28/18 [History] [place]-3 Fatty Acids/Fish Oil [Fish Oil 1,000 mg Capsule] 1 mg PO DAILY 04/28/18 [History] Pitavastatin Calcium [Livalo] 2 mg PO HS 04/28/18 [History] Ropinirole HCl 0.5 mg PO HS 04/28/18 [History] Ubidecarenone [Co Q-10] 200 mg PO BID 04/28/18 [History] Vit A/Vit C/Vit E/Zinc/Copper [Preservision Areds Softgel] 2 cap PO DAILY 04/28/18 [History] Hx Tetanus, Diphtheria Vaccination/Date Given: Yes Hx Influenza Vaccination/Date Given: Yes Hx Pneumococcal Vaccination/Date Given: Yes Travel Risk - International Travel Have you traveled outside of the country in past 3 weeks: No - Coronavirus Screening Are you exhibiting any of the following symptoms?: No Close contact with a COVID-19 positive Pt in past 14-21 Days: No - Review of Systems Constitutional: No Symptoms Eyes: No Symptoms Ears, Nose, & Throat: Other (Food bolus difficulty swallowing) Respiratory: No Symptoms Cardiac: No Symptoms Abdominal/Gastrointestinal: No Symptoms Genitourinary Symptoms: No Symptoms Musculoskeletal: No Symptoms Skin: No Symptoms Neurological: No Symptoms Psychological: No Symptoms Endocrine: No Symptoms Hematologic/Lymphatic: No Symptoms Immunological/Allergic: No Symptoms All Other Systems: Reviewed and Negative - Past Medical History Pertinent Past Medical History: No Neurological History: No Pertinent History ENT History: No Pertinent History Cardiac History: Coronary Artery Disease, Myocardial Infarction ([place]), Other Respiratory History: Pneumonia Endocrine Medical History: No Pertinent History Musculoskeletal History: No Pertinent History GI Medical History: Hernia History: No Pertinent History Psycho-Social History: No Pertinent History Male Reproductive Disorders: No Pertinent History Other Medical History: PROSTATE CANCER - seed implant. 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 - Past Surgical History Past Surgical History: Yes Neuro Surgical History: No Pertinent History Cardiac: Cardiac Catheterization, Cardiac Stent Respiratory: No Pertinent History Gastrointestinal: Hernia Repair Genitourinary: No Pertinent History Musculoskeletal: No Pertinent History Male Surgical History: Prostate Surgery Other Surgical History: PROSTATE SEED IMPLANT - Social History Smoking Status: Former smoker Exposure to second hand smoke: No Drug Use: none Patient Lives Alone: No - Nursing Vital Signs Nursing Vital Signs: Pain Scale Pain Intensity 3 - Physical Exam General Appearance: mild distress, alert, anxiety Eye Exam: PERRL/EOMI, eyes nml inspection Ears, Nose, Throat Exam: normal ENT inspection, moist mucous membranes Neck Exam: normal inspection, non-tender, supple, full range of motion Respiratory Exam: normal breath sounds, lungs clear, airway intact, No chest tenderness, No respiratory distress Cardiovascular Exam: regular rate/rhythm, normal heart sounds, normal peripheral pulses Gastrointestinal/Abdomen Exam: soft, normal bowel sounds, No tenderness Rectal Exam: not done Back Exam: normal inspection, normal range of motion, No CVA tenderness, No vertebral tenderness Extremity Exam: normal inspection, normal range of motion, pelvis stable Neurologic Exam: alert, oriented x 3, cooperative, statistical modeler II-XII nml as tested, normal mood/affect, nml cerebellar function, nml station & gait, sensation nml Skin Exam: normal color, warm, dry Lymphatic Exam: No adenopathy SpO2 Interpretation: normal O2 Delivery: Room Air - Course Nursing assessment & vital signs reviewed: Yes Ordered Tests: Medication Summary Discontinued Medications Generic Name Dose Route Start Last Admin Trade Name Kristina PRN Reason Stop Dose Admin Glucagon 1 mg 06/14/20 20:11 06/14/20 20:13 Glucagen 1 Mg IM 06/14/20 20:12 1 mg STAT ONE Administration Glucagon Confirm 06/14/20 20:09 Glucagen 1 Mg Administered 06/14/20 20:10 Dose 1 mg .ROUTE .[facility]MED [facility] - Progress Progress: unchanged Progress Note: 06/14/20 20:42 Medical decision making: This patient has an esophageal impacted food bolus of steak that is causing obstruction. He is breathing fine he has no chest pain and no abdominal pain. We did provide the patient with cola and glucagon. This did not improve his symptoms. He had a similar episode October 2019 requiring esophageal gastroduodenoscopy. I contacted Dr. Jamie Louise, general surgeon. He will be taking this patient to the operating room to relieve this impacted, obstructing food bolus in the esophagus. Discussed with : Debra Counseled pt/family regarding: diagnosis - Departure Departure Disposition: Release to OR/DCC Clinical Impression: Impacted foreign body in esophagus Condition: Stable Critical Care Time: No Referrals: CURLY JEONG MD [Primary Care Provider] -
[2020-06-14] MEDS ORDERED: GlucaGen 1 MG ONE (20:09)
[2020-06-14] MEDS ORDERED: GlucaGen 1 MG IM ONE (20:11)
[2020-06-14] MEDS ORDERED: Lactated Ringers 1,000 ML IV ONE (20:44)
[2020-06-14 21:08] VITALS: PULSE 72; O2SAT 96
[2020-06-14 21:12] VITALS: BP 166/79
[2020-06-14] MEDS ORDERED: BRIDION 200MG/2ML IV ONE (21:24)
[2020-06-14] MEDS ORDERED: Zemuron 100 MG/10 ML ONE (21:24)
[2020-06-14] MEDS ORDERED: DIPRIVAN 200 MG/20 ML IV ONE (21:24)
[2020-06-14] MEDS ORDERED: Amidate 20 MG/10 ML IV ONE (21:25)
[2020-06-14] MEDS ORDERED: Quelicin Fliptop 200 MG/10 ML ONE (21:49)
--- NOTE | 2020-06-16 07:50 | OP ---
SURGERY DATE/TIME: 06/14/20202135 PREOPERATIVE DIAGNOSIS: Lodged food bolus in esophagus recurrent. POSTOPERATIVE DIAGNOSIS: Lodged food bolus in esophagus recurrent. PROCEDURE: EGD with removal and advancement of food bolus. SURGEON: Jamie Louise M.D. ANESTHESIA: General. COMPLICATIONS: None. CONDITION: Stable. INDICATION: The patient has impacted food bolus. He had one back in October. DESCRIPTION OF PROCEDURE: He was taken to endoscopy. Dorsal supine position. General endotracheal tube intubation. Scope introduced. About 40 times, multiple small bites of meat were pulled out of the gastroesophageal junction until this was small enough that it advanced. There was a very small pouch off to the left. It looked satisfactory. The aperture was larger than the gastroscope. It was about a 30 [place]. It was acutely inflamed. It did not seem prudent to dilate this any at this time. It certainly was adequate for well chewed food. The pylorus was open. Scope was withdrawn. The patient tolerated the procedure satisfactorily.
== END 2020-06-14 21:20 | disposition other institution (70) ==
LOC: ED 19:40
DX: T18.128A Food in esophagus causing other injury, initial encounter (principal); X58.XXXA Exposure to other specified factors, initial encounter; Y93.89 Activity, other specified; K21.9 Gastro-esophageal reflux disease without esophagitis; K44.9 Diaphragmatic hernia without obstruction or gangrene; I10 Essential (primary) hypertension; Z79.899 Other long term (current) drug therapy
CPT/HCPCS: 36000; 43247; 96372; 99100; 99140; 99284; J0330; J1610; J2704

== ENCOUNTER 2021-01-10 19:08 | Emergency (ER) | payer MEDICARE, OTHER ==
[2021-01-10 19:20] VITALS: O2SAT 98
[2021-01-10] MEDS ORDERED: GlucaGen 1 MG IM ONE (19:33)
[2021-01-10] MEDS ORDERED: Zofran 4 MG/2 ML VIAL IV ONE (19:34)
[2021-01-10] MEDS ORDERED: GlucaGen 1 MG ONE (19:53)
[2021-01-10] MEDS ORDERED: Zofran 4 MG/2 ML VIAL ONE (19:53)
--- NOTE | 2021-01-10 20:20 | ERPHSYRPT ---
- History of Present Illness Time Seen by Provider: 01/10/21 19:33 Source: patient Exam Limitations: no limitations Patient Subjective Stated Complaint: I was eating some pork and I guess I didn't get it chewed up good and it's stuck, I have a hiatal hernia Triage Nursing Assessment: pt was eating dinner around 1830, having pork, and didn't get it chewed up good, and it's stuck and the bottom of his sternum. Pt can't get it up or down. Pt is coughing and spitting up lots of thin, clear sputum, his nose is running. Pt states, "I have a hiatal hernia, this has happened 3 times before, but I haven't spit up like this before". Lungs clear, abd soft with active bs x4 quad, nontender. Physician History: Patient here with esophageal food bolus. Patient states he has a history of this. Was eating pork just prior to arrival. Feel that he has something stuck in his esophagus. History of hiatal hernia which contributes to this. No falls no trauma. No fever no chills. Patient is not handling his secretions. Spitting into a cup. Timing/Duration: today Severity: moderate Modifying Factors: Improves With: eating Associated Symptoms: nausea, vomiting Allergies/Adverse Reactions: No Known Drug Allergies Allergy (Verified 01/10/21 19:28) Home Medications: Esomeprazole Magnesium [Nexium] 20 mg PO DAILY 04/28/18 [History] Ezetimibe 10 mg [Zetia 10 MG] 10 mg PO DAILY 04/28/18 [History] Furosemide [Lasix] 40 mg PO DAILY 04/28/18 [History] Losartan Potassium 100 mg PO HS 04/28/18 [History] [place]-3 Fatty Acids/Fish Oil [Fish Oil 1,000 mg Capsule] 1 mg PO DAILY 04/28/18 [History] Ropinirole HCl 0.5 mg PO HS 04/28/18 [History] Ubidecarenone [Co Q-10] 200 mg PO DAILY 04/28/18 [History] Vit A/Vit C/Vit E/Zinc/Copper [Preservision Areds Softgel] 2 cap PO DAILY 04/28/18 [History] Amlodipine Besylate 2.5 mg PO DAILY 06/14/20 [History] Aspirin 81 mg PO DAILY 06/14/20 [History] Cholecalciferol (Vitamin D3) [Vitamin D3] 5,000 unit PO WEEKLY 06/14/20 [History] Cyanocobalamin (Vitamin B-12) [B-12 Compliance] 1 mcg SQ UD 06/14/20 [History] Ferrous Sulfate 325 mg PO DAILY 06/14/20 [History] Hydrochlorothiazide 12.5 mg PO DAILY 06/14/20 [History] Magnesium 250 mg PO BID 06/14/20 [History] Hx Tetanus, Diphtheria Vaccination/Date Given: Yes Hx Influenza Vaccination/Date Given: Yes Hx Pneumococcal Vaccination/Date Given: Yes Immunizations Up to Date: Yes Travel Risk - International Travel Have you traveled outside of the country in past 3 weeks: No - Coronavirus Screening Are you exhibiting any of the following symptoms?: No - Vaccine Status Have you recieved a Covid-19 vaccination: Yes 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 - Vaccination Dates Date of 2cond Vaccination (if applicable): 04/2020 - Review of Systems Constitutional: No Fever, No Chills Eyes: No Symptoms Ears, Nose, & Throat: No Symptoms Respiratory: No Cough, No Dyspnea Cardiac: No Chest Pain, No Edema, No Syncope Abdominal/Gastrointestinal: Other (Patient here with esophageal food bolus, spitting into a cup.), No Abdominal Pain, No Nausea, No Vomiting, No Diarrhea Genitourinary Symptoms: No Dysuria Musculoskeletal: No Back Pain, No Neck Pain Skin: No Rash Neurological: No Dizziness, No Focal Weakness, No Sensory Changes Psychological: No Symptoms Endocrine: No Symptoms All Other Systems: Reviewed and Negative - Past Medical History Pertinent Past Medical History: No Neurological History: No Pertinent History ENT History: No Pertinent History Cardiac History: Coronary Artery Disease, Myocardial Infarction ([place]), Other Respiratory History: Pneumonia Endocrine Medical History: No Pertinent History Musculoskeletal History: No Pertinent History GI Medical History: Hernia History: No Pertinent History Psycho-Social History: No Pertinent History Male Reproductive Disorders: No Pertinent History Other Medical History: PROSTATE CANCER - seed implant. 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 - Past Surgical History Past Surgical History: Yes Neuro Surgical History: No Pertinent History Cardiac: Cardiac Catheterization, Cardiac Stent Respiratory: No Pertinent History Gastrointestinal: Hernia Repair Genitourinary: No Pertinent History Musculoskeletal: No Pertinent History Male Surgical History: Prostate Surgery Other Surgical History: PROSTATE SEED IMPLANT - Social History Smoking Status: Former smoker Exposure to second hand smoke: No Drug Use: none Patient Lives Alone: No - Nursing Vital Signs Nursing Vital Signs: Initial Vital Signs Temperature 97.3 F 01/10/21 19:09 Pulse Rate 64 01/10/21 19:09 Respiratory Rate 20 01/10/21 19:09 Blood Pressure 180/68 01/10/21 19:09 O2 Sat by Pulse Oximetry 98 01/10/21 19:09 Pain Scale Pain Intensity 5 - Physical Exam General Appearance: no apparent distress, alert Eye Exam: PERRL/EOMI, eyes nml inspection Ears, Nose, Throat Exam: normal ENT inspection, TMs normal, pharynx normal, moist mucous membranes Neck Exam: normal inspection, non-tender, supple, full range of motion Respiratory Exam: normal breath sounds, lungs clear, No respiratory distress Cardiovascular Exam: regular rate/rhythm, normal heart sounds, normal peripheral pulses Gastrointestinal/Abdomen Exam: soft, normal bowel sounds, No tenderness, No mass Back Exam: normal inspection, normal range of motion, No CVA tenderness, No vertebral tenderness Extremity Exam: normal inspection, normal range of motion, pelvis stable Neurologic Exam: alert, oriented x 3, cooperative, normal mood/affect, nml cerebellar function, nml station & gait, sensation nml, No motor deficits Skin Exam: normal color, warm, dry, No rash Lymphatic Exam: No adenopathy SpO2: 98 - Course Nursing assessment & vital signs reviewed: Yes Ordered Tests: Active Orders 24 hr Category Date Time Status IV Insertion STAT Care 01/10/21 19:33 Active Medication Summary Discontinued Medications Generic Name Dose Route Start Last Admin Trade Name Kristina PRN Reason Stop Dose Admin Glucagon 1 mg 01/10/21 19:33 01/10/21 19:57 Glucagon 1 Mg/Vial Vial IM 01/10/21 19:34 1 mg STAT ONE Administration Glucagon Confirm 01/10/21 19:53 Glucagon 1 Mg/Vial Vial Administered 01/10/21 19:54 Dose 1 mg .ROUTE .STK-MED ONE Ondansetron HCl 8 mg 01/10/21 19:34 01/10/21 19:58 Ondansetron Hcl 4 Mg/2 Ml Vial IV 01/10/21 19:35 8 mg STAT ONE Administration Ondansetron HCl Confirm 01/10/21 19:53 Ondansetron Hcl 4 Mg/2 Ml Vial Administered 01/10/21 19:54 Dose 8 mg .ROUTE .STK-MED ONE - Progress Progress: improved Progress Note: 01/10/21 20:19 We will give glucagon, Zofran, Sprite. Will attempt to pass that here. Otherwise patient will need to be admitted for scope. 01/10/21 21:09 After 2-hour observation time patient was able to pass the food bolus himself. He was able to drink soda without difficulty. No longer spitting into a cup. Patient will need close gastroenterology follow-up. I did discuss this with the patient. He'll return here for any new or changing symptoms. - Departure Departure Disposition: Home Clinical Impression: Food impaction of esophagus Condition: Stable Critical Care Time: No Referrals: CURLY JEONG MD [Primary Care Provider] - Instructions: Removal of Foreign Body, Swallowed, Adult Additional Instructions: Follow-up with your machine heel seat laster for possible upper endoscopy. Return here for any new or changing symptoms.
[2021-01-10 21:25] VITALS: BP 172/76; PULSE 70
== END 2021-01-10 21:26 | disposition home or self-care (01) ==
LOC: ED 19:08
DX: T18.128A Food in esophagus causing other injury, initial encounter (principal)
CPT/HCPCS: 36000; 96374; 96375; 99284; J1610; J2405

== ENCOUNTER 2022-04-23 18:10 | Emergency (ER) | payer MEDICARE, OTHER ==
[2022-04-23 19:08] LABS: Absolute Neutrophil Ct (ANC) 6.05 x10^3/uL (1.4-6.9); BASOPHIL % 0.7 % (0.0-0.4); Basophil (Absolute #) 0.07 x10^3/uL (0-0.4); Eosinophil % 1.5 % (0.00-5.0); Eosinophil (Absolute #) 0.14 x10^3/uL (0-0.5); Hematocrit 35.2 % (42-50); Hemoglobin 11.3 g/dL (12.5-18.0); IMMATURE GRAN # 0.03 x10^3u/L (0.00-0.03); IMMATURE GRAN % 0.3 % (0.00-0.4); Lymphocyte (Absolute #) 2.08 x10^3/uL (1.0-4.6); Mean Cell Volume 96.4 fL (78-100); Mean Corpuscular Hgb Concent. 32.1 g/dL (32-36); Mean Platelet Volume 9.5 fL (7.5-11.0); Monocyte (Absolute #) 1.07 x10^3/uL (0.0-1.3); Monocytes % 11.3 % (0.0-12.0); Neutrophil % 64.2 % (36.0-66.0); Platelet Count 237 x10^3/uL (150-450); Red Blood Count 3.65 x10^6/uL (4.1-5.6); Red Cell Distribution Width 13.2 % (11.5-14.0); White Blood Count 9.4 x10^3/uL (4.0-10.5)
[2022-04-23 19:29] LABS: ALBUMIN 4.5 g/dL (3.5-5.0); ALKALINE PHOSPHATASE 70 U/L (38-126); AMYLASE 78 U/L (30-110); ANION GAP 9.5 MEQ/L (5-15); BLOOD UREA NITROGEN 22 mg/dL (9-20); CHLORIDE 97 mmol/L (98-107); Calcium 8.9 mg/dL (8.4-10.2); Carbon Dioxide 31 mmol/L (22-30); Creatinine 1 0.94 mg/dL (0.66-1.25); EST GLOMERULAR FILTRATION RATE > 60.0 ML/MIN; Glucose 133 mg/dL (74-106); LIPASE 37 U/L (23-300); NT PRO BNP 218 pg/mL (0-1800); Potassium 3.7 mmol/L (3.5-5.1); SGOT/AST 31 U/L (17-59); SGPT/ALT 21 U/L (0-50); SODIUM 134 mmol/L (137-145); Total Protein 8.4 g/dL (6.3-8.2)
--- NOTE | 2022-04-23 20:52 | ERPHSYRPT ---
- History of Present Illness Time Seen by Provider: 04/23/22 18:25 Source: patient Exam Limitations: no limitations Patient Subjective Stated Complaint: Patient c/o some dizziness and anxiety. He reports some difficulty breathing at times as well. Patient started having these issues in the car on the way to [facility] to be with who just fractured her hip. Patient's daughter brought him here. Daughter at bedside and believes it may be anxiety about the current situation with patient's . Triage Nursing Assessment: Patient brought back to ER in W/C. He is alert. No SOB noted at this time. No cough. Lungs clear. Pitting edema noted to BLE; left greater than right. Physician History: Patient is an 87-year-old male who his fell and suffered a fractured hip. The ambulance was called and she was transported to [facility] the patient was in the car with his daughter going there when he became short of breath quite anxious had some nausea dizziness and lightheadedness. He denies any chest pain. He does have a history of panic attacks and anxiety problems. Cardiac kan he has a remote history of PA and stent placement but no recent problems he also denies any COPD or diabetes. Timing/Duration: today Activities at Onset: emotional stress Severity of Dyspnea-Max: moderate Severity of Dyspnea-Current: none Possible Cause: occasional episodes Associated Symptoms: anxiety, cough, lightheadedness, weakness, dizziness Allergies/Adverse Reactions: No Known Drug Allergies Allergy (Verified 04/23/22 18:19) Home Medications: Esomeprazole Magnesium [Nexium] 20 mg PO DAILY 04/28/18 [History] Ezetimibe 10 mg [Zetia 10 MG] 10 mg PO DAILY 04/28/18 [History] Furosemide [Lasix] 40 mg PO DAILY 04/28/18 [History] Losartan Potassium 100 mg PO HS 04/28/18 [History] Ropinirole HCl 0.5 mg PO HS 04/28/18 [History] Ubidecarenone [Co Q-10] 200 mg PO DAILY 04/28/18 [History] Vit A/Vit C/Vit E/Zinc/Copper [Preservision Areds Softgel] 2 cap PO DAILY 04/28/18 [History] Amlodipine Besylate 2.5 mg PO DAILY 06/14/20 [History] Cholecalciferol (Vitamin D3) [Vitamin D3] 5,000 unit PO WEEKLY 06/14/20 [History] Cyanocobalamin (Vitamin B-12) [B-12 Compliance] 1 mcg SQ UD 06/14/20 [History] hydroCHLOROthiazide [Hydrochlorothiazide] 12.5 mg PO DAILY 06/14/20 [History] Tramadol HCl 50 mg [Ultram 50 mg] 50 mg PO DAILY 04/23/22 [History] Hx Tetanus, Diphtheria Vaccination/Date Given: Yes Hx Influenza Vaccination/Date Given: Yes Hx Pneumococcal Vaccination/Date Given: No Immunizations Up to Date: Yes Travel Risk - International Travel Have you traveled outside of the country in past 3 weeks: No - Coronavirus Screening Are you exhibiting any of the following symptoms?: Yes Symptoms: Shortness of Breath Close contact with a COVID-19 positive Pt in past 14-21 Days: No - Vaccine Status Have you recieved a Covid-19 vaccination: Yes Product Marketing Manager: [employer] - Vaccination Dates Date of 2cond Vaccination (if applicable): 04/2020 - Review of Systems Constitutional: No Fever, No Chills Eyes: No Symptoms Ears, Nose, & Throat: No Symptoms Respiratory: No Cough, No Dyspnea Cardiac: No Chest Pain, No Edema, No Syncope Abdominal/Gastrointestinal: No Abdominal Pain, No Nausea, No Vomiting, No Diarrhea Genitourinary Symptoms: No Dysuria Musculoskeletal: No Back Pain, No Neck Pain Skin: No Rash Neurological: No Dizziness, No Focal Weakness, No Sensory Changes Psychological: No Symptoms Endocrine: No Symptoms All Other Systems: Reviewed and Negative - Past Medical History Pertinent Past Medical History: Yes Neurological History: No Pertinent History ENT History: Macular Degeneration, Other Cardiac History: Coronary Artery Disease, High Cholesterol, Hypertension, Myocardial Infarction (PA), Other Respiratory History: Pneumonia Endocrine Medical History: No Pertinent History Musculoskeletal History: Osteoarthritis GI Medical History: GERD, Hernia History: No Pertinent History Psycho-Social History: Anxiety Male Reproductive Disorders: No Pertinent History Other Medical History: PROSTATE CANCER - seed implant. 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, left retina issues - Past Surgical History Past Surgical History: Yes Neuro Surgical History: No Pertinent History Cardiac: Cardiac Catheterization, Cardiac Stent Respiratory: No Pertinent History Gastrointestinal: Hernia Repair Genitourinary: No Pertinent History Musculoskeletal: No Pertinent History Male Surgical History: Other Other Surgical History: PROSTATE SEED IMPLANT - Social History Smoking Status: Former smoker Exposure to second hand smoke: No Drug Use: none Patient Lives Alone: No - Nursing Vital Signs Nursing Vital Signs: Initial Vital Signs Pulse Rate 58 L 04/23/22 18:19 Respiratory Rate 19 04/23/22 18:19 Blood Pressure 165/74 04/23/22 18:19 O2 Sat by Pulse Oximetry 96 04/23/22 18:19 Pain Scale Pain Intensity 0 - Physical Exam General Appearance: mild distress, alert Eye Exam: PERRL/EOMI Neck Exam: normal inspection, supple Cardiovascular/Chest Exam: normal heart sounds, regular rate/rhythm Abdominal/Gastrointestinal Exam: soft, No tenderness, No distention, No mass Extremity Exam: non-tender, normal range of motion, normal inspection, no calf tenderness, no pedal edema Neurologic Exam: alert, oriented x 3, cooperative, 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, sensation nml, No motor deficits Skin Exam: normal color, warm, No dry SpO2 Interpretation: normal SpO2: 96 O2 Delivery: Room Air - Course Nursing assessment & vital signs reviewed: Yes EKG Interpreted by Me: RATE (53), Sinus Rhythm, NORMAL AXIS - Radiology Exams Chest X-ray Interpretation: Interpreted by me, Negative (No acute processes identified chronic changes), Other (Nonspecific interventricular conduction delay and age- indeterminate lateral infarction) - CT Exams Chest CT Interpretation: Negative, Tele-radiologist Report Ordered Tests: Active Orders 24 hr Category Date Time Status EKG-ER Only STAT Care 04/23/22 18:49 Active IV Insertion STAT Care 04/23/22 18:49 Active CHEST 1 VIEW (PORTABLE) Stat Exams 04/23/22 18:50 Taken CHEST WITH CONTRAST [CT] Stat Exams 04/23/22 19:42 Taken AMYLASE Stat Lab 04/23/22 19:05 Completed CBC W DIFF Stat Lab 04/23/22 19:05 Completed CMP Stat Lab 04/23/22 19:05 Completed D-DIMER QUANTITATIVE Stat Lab 04/23/22 19:05 Completed LIPASE Stat Lab 04/23/22 19:05 Completed Lactic Acid Stat Lab 04/23/22 19:01 Completed MAGNESIUM Stat Lab 04/23/22 19:05 Completed NT PRO BNP Stat Lab 04/23/22 19:05 Completed TROPONIN Q4H Lab 04/23/22 19:05 Completed TROPONIN Q4H Lab 04/23/22 23:00 Ordered TROPONIN Q4H Lab 04/24/22 03:00 Ordered UA W/RFX UR CULTURE Stat Lab 04/23/22 20:41 Ordered Lab/Rad Data: Laboratory Result Diagrams 04/23/22 19:05 04/23/22 19:05 Laboratory Results 04/23/22 04/23/22 04/23/22 Range/Units 19:05 19:05 19:05 WBC (4.0-10.5) x10^3/uL RBC (4.1-5.6) x10^6/uL Hgb (12.5-18.0) g/dL Hct (42-50) % MCV (78-100) fL MCH (26-32) pg MCHC (32-36) g/dL RDW (11.5-14.0) % Plt Count (150-450) x10^3/uL MPV (7.5-11.0) fL Gran % (36.0-66.0) % Immature Gran % (Auto) (0.00-0.4) % Nucleat RBC Rel Count (0.00-0.1) % Eos # (Auto) (0-0.5) x10^3/uL Immature Gran # (Auto) (0.00-0.03) x10^3u/L Absolute Lymphs (auto) (1.0-4.6) x10^3/uL Absolute Monos (auto) (0.0-1.3) x10^3/uL Absolute Nucleated RBC (0.00-0.01) x10^3u/L Lymphocytes % (24.0-44.0) % Monocytes % (0.0-12.0) % Eosinophils % (0.00-5.0) % Basophils % (0.0-0.4) % Absolute Granulocytes (1.4-6.9) x10^3/uL Basophils # (0-0.4) x10^3/uL D-Dimer 1.00 H* (0.0-0.50) mg/L Sodium 134 L (137-145) mmol/L Potassium 3.7 (3.5-5.1) mmol/L Chloride 97 L (98-107) mmol/L Carbon Dioxide 31 H (22-30) mmol/L Anion Gap 9.5 (5-15) MEQ/L BUN 22 H (9-20) mg/dL Creatinine 0.94 (0.66-1.25) mg/dL Estimated GFR > 60.0 ML/MIN Glucose 133 H (74-106) mg/dL Lactic Acid (0.4-2.0) Calcium 8.9 (8.4-10.2) mg/dL Magnesium 2.0 (1.6-2.3) mg/dL Total Bilirubin 0.40 (0.2-1.3) mg/dL AST 31 (17-59) U/L ALT 21 (0-50) U/L Alkaline Phosphatase 70 (38-126) U/L Troponin I < 0.012 (0.000-0.034) ng/mL NT-Pro-B Natriuret Pep 218 (0-1800) pg/mL Serum Total Protein 8.4 H (6.3-8.2) g/dL Albumin 4.5 (3.5-5.0) g/dL Amylase 78 (30-110) U/L Lipase 37 (23-300) U/L 04/23/22 04/23/22 Range/Units 19:05 19:01 WBC 9.4 (4.0-10.5) x10^3/uL RBC 3.65 L (4.1-5.6) x10^6/uL Hgb 11.3 L (12.5-18.0) g/dL Hct 35.2 L (42-50) % MCV 96.4 (78-100) fL MCH 31.0 (26-32) pg MCHC 32.1 (32-36) g/dL RDW 13.2 (11.5-14.0) % Plt Count 237 (150-450) x10^3/uL MPV 9.5 (7.5-11.0) fL Gran % 64.2 (36.0-66.0) % Immature Gran % (Auto) 0.3 (0.00-0.4) % Nucleat RBC Rel Count 0.0 (0.00-0.1) % Eos # (Auto) 0.14 (0-0.5) x10^3/uL Immature Gran # (Auto) 0.03 (0.00-0.03) x10^3u/L Absolute Lymphs (auto) 2.08 (1.0-4.6) x10^3/uL Absolute Monos (auto) 1.07 (0.0-1.3) x10^3/uL Absolute Nucleated RBC 0.00 (0.00-0.01) x10^3u/L Lymphocytes % 22.0 L (24.0-44.0) % Monocytes % 11.3 (0.0-12.0) % Eosinophils % 1.5 (0.00-5.0) % Basophils % 0.7 (0.0-0.4) % Absolute Granulocytes 6.05 (1.4-6.9) x10^3/uL Basophils # 0.07 (0-0.4) x10^3/uL D-Dimer (0.0-0.50) mg/L Sodium (137-145) mmol/L Potassium (3.5-5.1) mmol/L Chloride (98-107) mmol/L Carbon Dioxide (22-30) mmol/L Anion Gap (5-15) MEQ/L BUN (9-20) mg/dL Creatinine (0.66-1.25) mg/dL Estimated GFR ML/MIN Glucose (74-106) mg/dL Lactic Acid 1.3 (0.4-2.0) Calcium (8.4-10.2) mg/dL Magnesium (1.6-2.3) mg/dL Total Bilirubin (0.2-1.3) mg/dL AST (17-59) U/L ALT (0-50) U/L Alkaline Phosphatase (38-126) U/L Troponin I (0.000-0.034) ng/mL NT-Pro-B Natriuret Pep (0-1800) pg/mL Serum Total Protein (6.3-8.2) g/dL Albumin (3.5-5.0) g/dL Amylase (30-110) U/L Lipase (23-300) U/L - Progress Progress: improved Air Movement: good Blood Culture(s) Obtained: No Antibiotics given: No Medical Desision Making - Independent Historian Additional History obtained from: Child - Diagnostic Testing Diagnostic Testing: Diagnostic tests were ordered,analyzed, and reviewed by me and used in my m edical decision making for this patient. Radiologic studies (if ordered) were read by me initially then discussed with the radiologist . - Risk of complications Minimal Risk: Minimal risk of morbidity - Departure Departure Disposition: Home Clinical Impression: Anxiety Condition: Stable Critical Care Time: No Referrals: CURLY JEONG MD [Primary Care Provider] - Follow up/PCP as directed Instructions: Anxiety, Adult (DC)
[2022-04-23 21:09] VITALS: BP 153/76; PULSE 64
[2022-04-23 21:26] VITALS: O2SAT 96
[2022-04-23 22:04] LABS: Appearance Clear (Clear); Bacteria None Seen /HPF (None Seen); Bilirubin Negative (Negative); Blood Trace (Negative); Epithelial Cells None Seen /HPF (None Seen); Glucose, Urine Negative (Negative); Hyaline Casts NONE SEEN /LPF (0-2); Ketones Negative (Negative); Leukocyte Esterase Negative (Negative); Nitrite Negative (Negative); Protein,Urine Dip Negative (Negative); RBC 0-2 /HPF (0-5); Specific Gravity 1.015 (1.005-1.030); Urobilinogen 0.2 mg/dL (0.2); WBC 0-2 /HPF (0-5)
[2022-04-23 22:06] LABS: ADD URINE CULTURE? NO (NO)
--- NOTE | 2022-04-24 08:54 | XRAY ---
Indication: Short of breath. Comparison: May 26, 2018 Portable chest remains inflated and clear. Heart and mediastinal structures within normal limits. Bony thorax intact again with osteopenia and degenerative changes. Impression: Continued nonacute chest with chronic features.
--- NOTE | 2022-04-24 08:54 | XRAY ---
Indication: Short of breath. Elevated d-dimer. Multiple contiguous images obtained through the chest using 100 cc Isovue 370 contrast and PE protocol. Comparison: Conventional CT chest with contrast exam November 02, 2019 Good opacification of the pulmonary arteries to includes the lobar and segmental branches. No pulmonary embolus. Heart is not enlarged again with scattered coronary calcifications. Aorta remains normal in course and caliber with minimal scattered arteriosclerotic disease. Stable small paratracheal and right hilar calcified nodes. No pathologic mediastinal/hilar lymphadenopathy. Again moderate size hiatal hernia. Lungs again demonstrates minimal scattered fibrosis/scarring and tiny calcified/noncalcified granulomas. No infiltrate, effusion, or pneumothorax. Bony thorax intact again with osteopenia and flowing osteophytes throughout the spine. Limited upper abdomen again demonstrates mild fatty liver. Impression: 1. Negative pulmonary embolus. No new/acute cardiopulmonary abnormalities. 2. Again chronic findings including hiatal hernia, fibrosis/scarring, chronic bony findings, fatty liver, and old granulomatous disease. Comment: Preliminary interpretation made by C. No critical discrepancy.
== END 2022-04-23 21:50 | disposition home or self-care (01) ==
LOC: ED 18:10
DX: F41.9 Anxiety disorder, unspecified (principal); R11.0 Nausea; R42 Dizziness and giddiness; R06.02 Shortness of breath; Z63.79 Other stressful life events affecting family and household; E78.5 Hyperlipidemia, unspecified; I10 Essential (primary) hypertension; Z79.891 Long term (current) use of opiate analgesic; Z79.899 Other long term (current) drug therapy
CPT/HCPCS: 36000; 36415; 71045; 71260; 80053; 81001; 82150; 83605; 83690; 83735; 83880; 84484; 85025; 85379; 93005; 99284